=== PATIENT | male | born 1995 | race Caucasian/White ===

== ENCOUNTER 2016-12-04 11:09 | Emergency (ER) | payer BC ==
[2016-12-04] MEDS ORDERED: Lidocaine 2% PF * 5 ML VIAL ONE (13:45)
[2016-12-04] MEDS ORDERED: Ethyl Chloride SPRAY (NF) BTL ONE (13:52)
--- NOTE | 2016-12-04 14:10 | UC ---
Skin Complaint HPI - HPI Summary HPI Summary: 5 days of worsening cyst on tailbone had similar in July with I7D and antibiotics with relief - History of Current Complaint Chief Complaint: UCSkin Time Seen by Provider: 12/04/16 13:35 Stated Complaint: SKIN COMPLAINT Hx Obtained From: Patient Onset/Duration: Gradual Onset, Lasting Days - 5, Still Present Timing: Constant Onset Severity: Mild Current Severity: Moderate Pain Intensity: 7 Pain Scale Used: 0-10 Numeric Location: Discrete - coccyx Character: Pain, Redness, Raised Aggravating: Touch Alleviating: Nothing - tried some old antibiodics Associated Signs & Symptoms: Positive: Tenderness - cyst on coccyx - Allergy/Home Medications Allergies/Adverse Reactions: Allergies Allergy/AdvReac Type Severity Reaction Status Date / Time No Known Allergies Allergy Verified 12/04/16 13:11 Home Medications: Home Medications Ibuprofen-Diphenhydramine Citr [Motrin Pm] 2 tab PO BEDTIME PRN 12/04/16 [ History Confirmed 12/04/16] Review of Systems Constitutional: Negative Skin: Other - 3 inch diameter induration on coccyx, no drainage Eyes: Negative ENT: Negative Respiratory: Negative Cardiovascular: Negative Gastrointestinal: Negative Genitourinary: Negative Motor: Negative Neurovascular: Negative Musculoskeletal: Negative Neurological: Negative Psychological: Negative All Other Systems Reviewed And Are Negative: Yes PMH/Surg Hx/FS Hx/Imm Hx Previously Healthy: Yes - Surgical History Surgical History: None - Family History Known Family History: Positive: None Family History: denies cardiovascular issues in family lineage - Social History Occupation: Retired - [employer] Lives: With Family Alcohol Use: None Substance Use Type: None Smoking Status (MU): Never Smoked Tobacco Physical Exam Triage Information Reviewed: Yes Appearance: Well-Appearing, No Pain Distress, Well-Nourished Vital Signs: Initial Vital Signs Temp 98.6 F 12/04/16 13:13 Pulse 79 12/04/16 13:13 Resp 16 12/04/16 13:13 BP 125/69 12/04/16 13:13 Pulse Ox 100 12/04/16 13:13 Vital Signs Reviewed: Yes Eye Exam: Normal Eyes: Positive: Conjunctiva Clear ENT Exam: Normal ENT: Positive: Normal ENT inspection, Hearing grossly normal. Negative: Nasal congestion, Nasal drainage, Trismus, Muffled/hoarse voice Dental Exam: Normal Neck exam: Normal Neck: Positive: Supple, Nontender Respiratory Exam: Normal Respiratory: Positive: Normal breath sounds, No respiratory distress Cardiovascular Exam: Normal Cardiovascular: Positive: RRR, Pulses Normal, Brisk Capillary Refill Musculoskeletal Exam: Normal Musculoskeletal: Positive: Strength Intact, ROM Intact, No Edema Neurological Exam: Normal Neurological: Positive: Alert, Muscle Tone Normal Psychological Exam: Normal Skin: Positive: Other - 3 inch diameter induation coccyx cyst with tense tenting and fluctulant center Re-Evaluation - Re-Evaluation First Eval Change: Improved - Washed times 3 with betadine,sterile drape, 4 cc of 1% lidocaine injected open with scapel, large amont of foul purulent drainage, cyst now about 1/2 of orginal size, patient [id number] feeling better Course/Dx - Course Course Of Treatment: warm soaks, dressing, cuture drainage, antibiodic follow with surgeon for definative care, tylenol, ibuprofen for pain - Differential Diagnoses - Skin Complaint Differential Diagnoses: Cellulitis, Other - cyst - Diagnoses Provider Diagnoses: pilonidal cyst with I&D Discharge - Discharge Plan Condition: Stable Disposition: HOME Prescriptions: Sulfamethox/Trimethoprim DS* [Bactrim DS 800/160 TAB*] 1 tab PO BID #20 tab Patient Education Materials: Ibuprofen (By mouth), Pilonidal Cyst (GEN), Sitz Bath (GEN), Heat Pack Application (ED) Referrals: Vaibhav Paredes MD [Medical Doctor] - 2 Weeks
== END 2016-12-04 14:21 | disposition home or self-care (01) ==
LOC: UCCORT 11:09
DX: M85.48 Solitary bone cyst, other site (principal); R09.81 Nasal congestion
CPT/HCPCS: 10080; 87070; 87076; 87077; 87185; 87205; 87640; 87641; 99202; A9270-GY; G0463